=== PATIENT | female | born 1995 | race Two or more races ===

== ENCOUNTER 2020-12-01 17:26 | Emergency (ER) | payer BC ==
[~2020-12-01] VITALS: Ht 162.6 cm; Wt 95.3 kg
[2020-12-01] MEDS ORDERED: CASIRIVIMAB/IMDEVIMAB 10 ML in SODIUM CHLORIDE 0.9% 100 ML IV ONE (18:00)
== END 2020-12-01 19:14 | disposition home or self-care (01) ==
LOC: ER 18:15
DX: U07.1 COVID-19 (principal); R06.02 Shortness of breath; R05.9 Cough, unspecified
CPT/HCPCS: 99283; J7050